=== PATIENT | male | born 1955 | race Caucasian/White ===

== ENCOUNTER → 2019-12-22 09:05 | Outpatient (CLI) | payer MEDICARE, OTHER, SELFPAY | PROVIDERS: PCP Dentist; Referring Provider Registered Nurse; Visit Provider Registered Nurse | DX: Z20.828 Contact with and (suspected) exposure to other viral communicable diseases (principal) | CPT/HCPCS: 87635; C9803; U0003 ==

== ENCOUNTER 2021-11-09 19:28 | Emergency (ER) | payer MEDICARE, OTHER, SELFPAY ==
[2021-11-09 19:29] VITALS: BP 152/94; PULSE 61; RESP 15; TEMP 36.2; O2SAT 98; BMI 29.5
--- NOTE | 2021-11-09 19:42 | EKG12_ITS ---
Test Reason : CP Blood Pressure : / mmHG Vent. Rate : 064 BPM Atrial Rate : 064 BPM P-R Int : 186 ms QRS Dur : 082 ms QT Int : 400 ms P-R-T Axes : 038 -18 055 degrees QTc Int : 412 ms Sinus rhythm with marked sinus arrhythmia Otherwise normal ECG Confirmed by LEIDY ALFARO, TRACIE ([id number]), proposal editor BHUPENDRA ARIZMENDI ([id number]) on 11/11/2021 11:30:36 AM Referred By: TAMIKO Confirmed By:TRACIE FORBES MD
--- NOTE | 2021-11-09 19:56 | EDS_ITS ---
HPI History of Present Illness Chief Complaint: Chest Pain Informant: patient and spouse/S.O. Narrative Narrative: Postop day [address] three-v[address] CAB[address] Dr[address] rEic Del Rosario after talking with cardiology office today with worsening pain across his mid sternum. He states he had chest pains that led to PT visit with a abnormal EKG. He was referred to workers compensation claims specialist Dr. Mark at [facility]. Abnormal nuclear stress leading to heart cath on December 22. They found multivessel disease , had three-vessel CABG. He has been having persistent pain since his surgery. He started on gabapentin he was on oxycodone's which takes his pain down to a 5. Since being discharged approximately 8 days ago gabapentin increased to 3 times a day and told to use Tylenol. Today pain is worsening. States sharp pains today left lateral with dyspnea. He did follow-up 2 days ago was being referred to pain management for his pain. He denies cough. He denies any leg swelling or cramping. History of hypertension hyperlipidemia and family history in his father side with coronary disease and ID. No tobacco history. He is currently on baby aspirin daily. No other anticoagulants. Prior Similar Symptoms: Yes CVD Risk Factors: Positive for Hypertension, Hypercholesterolemia and Family History 1' </=55 PE Risk Factors: Positive for Recent Travel/Surgery [facility] Medical History (Updated 11/09/21 @ 23:[address] Silas Mcpherson DO) Hernia Hypertension Vertigo Home Medications clopidogrel 75 mg tablet 75 mg PO DAILY 11/09/21 [History Last Taken Unknown] gabapentin 100 mg capsule 200 mg PO BID 11/09/21 [History Last Taken Unknown] magnesium oxide 400 mg (241.3 mg magnesium) tablet 400 mg PO DAILY 11/09/21 [History Last Taken Unknown] metoprolol tartrate 50 mg tablet 50 mg PO BID 11/09/21 [History Last Taken Unknown] oxycodone-acetaminophen 5 mg-325 mg tablet (Percocet) 1 tab PO Q6H PRN pain 3 days #12 tabs 11/09/21 [Rx Last Taken Unknown] rosuvastatin 20 mg tablet 20 mg PO QHS 11/09/21 [History Last Taken Unknown] sertraline 100 mg tablet 150 mg PO DAILY 11/09/21 [History Last Taken Unknown] Allergy/AdvReac Type Severity Reaction Status Date / Time paroxetine [From Paxil] AdvReac PT UNSURE Verified 11/09/21 19:32 OF REACTION Surgical History (Updated 11/09/21 @ 23:[address] iSlas Mcpherson DO) History of cholecystectomy Hx of CABG Social History Smoking Status: Never smoker ROS ROS ED Constitutional Constitutional ED: Denies chills, fever(s) or sweats Eyes Eyes: Denies change in vision ENT ENT ED: Denies dysphagia or sore throat Cardiovascular Cardiovascular: Reports chest pain; Denies leg edema, palpitations or racing heartbeat Respiratory/Chest Respiratory/Chest: Reports dyspnea; Denies cough or dyspnea on exertion Gastrointestinal Gastrointestinal: Denies abdominal pain, diarrhea, nausea or vomiting Genitourinary Genitourinary ED: Denies dysuria, hematuria or urinary frequency Musculoskeletal Musculoskeletal: Denies back pain, extremity pain or neck pain Integumentary Denies rash or wounds Neurologic Neurologic: Denies headache(s), paresthesias or weakness EXAM Physical Exam Const Vital Signs: 11/09/21 19:29 11/09/21 20:00 11/09/21 20:01 Temperature 97.2 F L Temperature Source Temporal Pulse Rate 61 66 Respiratory Rate 15 19 H Respiratory Effort Normal Non-Labored Blood Pressure 152/94 H 154/82 H Blood Pressure Mean 113 106 Pulse Ox 98 99 Oxygen Delivery Method Room Air Room Air 11/09/21 21:00 11/09/21 22:00 11/09/21 22:11 Temperature Temperature Source Pulse Rate 64 55 L Respiratory Rate 13 16 Respiratory Effort Blood Pressure 154/82 H 130/88 H Blood Pressure Mean 106 102 Pulse Ox 96 96 Oxygen Delivery Method Room Air Room Air Room Air 11/09/21 23:25 Temperature 98 F Temperature Source Pulse Rate 69 Respiratory Rate 17 Respiratory Effort Blood Pressure 143/94 H Blood Pressure Mean Pulse Ox Oxygen Delivery Method Positive well nourished and well developed General Appearance ED: well developed and NAD HEENT Reports moist mucous membranes normocephalic and atraumatic Eyes PERRL, EOMs intact bilaterally and conjunctivae normal General Eye ED: Yes normal appearance of both eyes Neck no lymphadenopathy and supple General: Negative for tenderness Chest Wall Chest Narrative: Midline chest incision scar with scabbing. There is no erythema or drainage. Chest: Negative for tenderness Resp normal respiratory effort and normal air movement Resp Narrative: Symmetric breath sounds bilaterally. Effort and Inspection: symmetric chest movement; Negative for respiratory distress Cardio regular rate, regular rhythm and no murmurs Peripheral Pulses: pulses 2+ throughout GI normal to inspection, nondistended, normoactive bowel sounds and non-tender Palpation: Negative for guarding or rebound tenderness present Back/Spine no CVA tenderness and no thoracic nor lumbar tenderness Extremity normal to inspection General Extremety ED: Negative for edema or tenderness General Extremity: Negative for edema Neuro oriented x3 and no sensory deficits noted Sensorium / Orientation: awake and alert Skin no rashes or lesions noted and no wounds Heart Score History: Slightly/Non-Suspicious ECG: Normal Age: >/= 65 years Risk Factors: >/= 3 Risk Factors or History of CAD Troponin: </= Normal Limit Score: 4 MDM MDM MDM Narrative Medical decision making narrative: Patient with chest pains postop day 16. Reports dyspnea today. EKG with no acute findings cardiac work-up high since troponin negative x2. With his new symptoms being. Discussed obtaining CTA to rule out PE. This was obtained and negative. Noted small amount of pericardial effusion along with tiny left pleural effusion. This consistent with his recent surgery. There is no findings of pericarditis on his EKG as this is still part of the differential. He saw his cardiothoracic surgeon 2 days ago is being referred to pain management he has a follow-up with his workers compensation claims specialist Dr. Mark this coming Thursday. Symptoms were improving with morphine he states it stabilized with o xycodone's. Oral dose was given in the ED. Short prescription also written for pain control to help with his symptoms he will keep his follow-up on Thursday. Return precaution discussed. All questions were answered. Lab Data Attestation: I reviewed the patient's lab results. Labs: Laboratory Results - last 24 hr 11/09/21 11/09/21 11/09/21 19:53 19:53 22:22 WBC 9.2 RBC 3.69 L Hgb 12.2 L Hct 35.3 L MCV 95.7 H MCH 33.1 H MCHC 34.6 RDW Std Deviation 44.2 H RDW Coeff of Saskia 12.8 Plt Count 656 H MPV 8.4 Immature Gran % (Auto) 0.200 Neut % (Auto) 64.1 Lymph % (Auto) 15.1 L Sutter % (Auto) 8.8 Eos % (Auto) 10.5 H Baso % (Auto) 1.3 H Absolute Neuts (auto) 5.9 Absolute Lymphs (auto) 1.39 Nucleated RBC % 0 Sodium 140 Potassium 4.5 Chloride 104 Carbon Dioxide 30.0 Anion Gap 6 BUN 29 H Creatinine 1.21 Estim Creat Clear Calc 63.10 Est GFR (MDRD) Af Amer 77 Est GFR (MDRD) Non-Af 63 BUN/Creatinine Ratio 24.0 H Glucose 118 H Calcium 9.3 Troponin I High Sens 35 36 Radiography Diagnostic Testing: Clinical Impression(s) from Imaging Studies Chest CTA 11/09/21 19:56 IMPRESSION: 1. Small amount of pericardial fluid. 2. No hematoma or significant hemorrhage. 3. No no PE, aortic dissection or pneumonia. Tiny left pleural effusion. Electronically Signed: Eliseo Johnson MD at 21:54 EDT Reading [facility] ID and [facility] [place] Tel , Service support , EKG Initial EKG: Attestation: I personally reviewed and interpreted this EKG as follows: Comments: Sinus rate of 64, no ST changes T wave inversion V1 V2. Discharge Plan Triage Chief Complaint: Chest Pain ED Provider: Silas Mcpherson Dx/Rx/DC Orders Clinical Impression: Chest pain, S/P CABG x 3, Pericardial effusion without cardiac tamponade Instructions: ED Chest Pain, Uncertain Cause Prescriptions: New oxycodone-acetaminophen [Percocet] 5-325 mg tablet 1 tab PO Q6H PRN (Reason: pain) 3 Days Qty: 12 0RF No Action sertraline 100 mg tablet 150 mg PO DAILY Label Comments: take 1 and 1/2 tablets by mouth once daily clopidogrel 75 mg tablet 75 mg PO DAILY magnesium oxide 400 mg (241.3 mg magnesium) tablet 400 mg PO DAILY Label Comments: take 1 tablet by mouth once daily until finished metoprolol tartrate 50 mg tablet 50 mg PO BID Label Comments: take 1 tablet by mouth twice a day gabapentin 100 mg capsule 200 mg PO BID Label Comments: take 2 capsules by mouth twice a day for 14 days rosuvastatin 20 mg tablet 20 mg PO QHS Primary Care Provider: Madhu Salgado Referrals: Rafi Jacobo MD [STAFF PHYSICIAN] - Activity Restrictions/Additional Instructions: Cardiac work-up negative. CT of the chest negative for PE. There is mild pericardial effusion, mild left pleural effusion. There are no signs of pericarditis on EKG. Her troponins were negative. Keep your follow-up on Thursday with Dr. Mark for evaluation. Disposition Disposition: Home, Self Care Discharge Date/Time: 11/09/21 23:45
--- NOTE | 2021-11-09 19:56 | CT_ITS ---
EXAM: CT ANGIOGRAPHY CHEST WITHOUT AND WITH INTRAVENOUS CONTRAST CLINICAL INDICATION: chest pain -- postop 3vessel CABG day 16 TECHNIQUE: Helically acquired angiography images were obtained of the chest without and with intravenous contrast. CTDIvol = ( 14.83 ) mGy, DLP = ( 496.30 ) mGycm This CT exam was performed using one or more of the following dose reduction techniques: automated exposure control, adjustment of the mA and/or kV according to patient size, and/or use of iterative reconstruction technique. This report was created using En[employer] report generation technology. MIP reconstructed images were created and reviewed. CONTRAST: IV 100mL Isovue-370 COMPARISON: None. FINDINGS: PULMONARY ARTERIES: No PE. Normal in caliber. No evidence of pulmonary embolism. AORTA: No aortic aneurysm or dissection. GREAT VESSELS OF AORTIC ARCH: Unremarkable. Normal in caliber. No evidence of dissection. LUNGS AND PLEURAL SPACES: Scarring involving the right middle follicular middle lobe and inferior lingula. No consolidation. Pneumothorax. Small left pleural effusion. No mass. HEART: Small pericardial fluid anteriorly. No cardiomegaly. CABG postsurgical changes. No signs of right heart strain, ratio of right ventricle to left ventricle measures less than 1. MEDIASTINUM: Unremarkable. No mediastinal or hilar adenopathy. Esophagus is unremarkable. No hiatal hernia. THYROID: Unremarkable. No thyroid lesions. BONES/JOINTS: No suspicious lytic or sclerotic lesions of bone. GALLBLADDER AND BILE DUCTS: Prior cholecystectomy. CT/CTA Chest W/WO Contrast IMPRESSION: 1. Small amount of pericardial fluid. 2. No hematoma or significant hemorrhage. 3. No no PE, aortic dissection or pneumonia. Tiny left pleural effusion. Electronically Signed: Eliseo Johnson MD at 21:54 EDT ,
[2021-11-09 20:00] VITALS: BP 154/82; PULSE 66; RESP 19; O2SAT 99
[2021-11-09] MEDS: Morphine 4 MG/ML Syringe IV (20:05)
[2021-11-09] MEDS: Ondansetron 4 MG/2 ML Vial IV (20:05)
[2021-11-09 20:32] LABS: Absolute Lymphocyte Count 1.39 X10^3/uL (0.83-4.51); Absolute Neutrophil Count 5.9 X10^3/uL (2.0-7.7); Basophil# 0.12 X10^3/uL; Basophil% 1.3 % (0-1); Eosinophil# 0.97 X10^3/uL; Eosinophils% 10.5 % (0-5); Hematocrit 35.3 % (40-54); Hemoglobin 12.2 g/dL (13.0-16.5); Lymphocyte # 1.39 X10^3/ul (0.83-4.51); Lymphocyte % 15.1 % (19-41); Mean Corp Hgb Conc 34.6 g/dL (32-36); Mean Corpuscular Hgb 33.1 pg (27.0-32.0); Mean Corpuscular Volume 95.7 fL (80-94); Mean Platelet Vol. 8.4 fl (6.2-12.0); Monocyte# 0.81 X10^3/uL; Monocyte% 8.8 % (0-10); NRBC Flagged by Analyzer 0 % (0-5); Neutrophil # 5.89 X10^3/uL (2.7-7.7); Neutrophil % 64.1 % (47-70); Platelet Count 656 K/mm3 (150-450); RBC Distribution Width CV 12.8 % (11.6-14.6); RBC Distribution Width SD 44.2 fl (35.1-43.9); Red Blood Count 3.69 M/mm3 (4.6-6.2); White Blood Count 9.2 K/mm3 (4.4-11.0)
[2021-11-09 20:43] LABS: Anion Gap 6 (5-15); BUN 29 mg/dL (7-18); Calcium,Total 9.3 mg/dL (8.5-10.1); Chloride 104 mmol/L (98-107); Creatinine, Serum 1.21 mg/dL (0.70-1.30); EST Glomerular Filtration Rate 63 mL/min (>60); Est Glom Filt Rate - Afr Amer 77 mL/min (>60); Glucose 118 mg/dL (74-106); Potassium 4.5 mmol/L (3.5-5.1); Sodium Level 140 mmol/L (136-145); Troponin-I HS (w/2H Reflex) 35 pg/mL (3.0-78.0)
[2021-11-09 21:00] VITALS: BP 154/82; PULSE 64; RESP 13; O2SAT 96
[2021-11-09 22:00] VITALS: BP 130/88; PULSE 55; RESP 16; O2SAT 96
[2021-11-09 22:15] LABS: Reflex Troponin-HS? (from REC) Y
[2021-11-09] MEDS: oxyCODONE 5 MG Tablet PO (22:54)
[2021-11-09 22:55] LABS: Troponin-I HS 36 pg/mL (3.0-78.0)
[2021-11-09 23:25] VITALS: BP 143/94; PULSE 69; RESP 17; TEMP 36.6
== END 2021-11-09 23:45 | disposition home or self-care (01) ==
PROVIDERS: Emergency Provider Emergency Medicine; PCP Family Medicine; Visit Provider Emergency Medicine
DX: R07.9 Chest pain, unspecified (principal); I31.3 Pericardial effusion (noninflammatory); I10 Essential (primary) hypertension; F17.200 Nicotine dependence, unspecified, uncomplicated; Z79.899 Other long term (current) drug therapy; Z95.1 Presence of aortocoronary bypass graft
CPT/HCPCS: 71275; 80048; 84484; 85025; 93005; 96374; 96375; 99285; Q9967; A4216; J2405

== ENCOUNTER → 2021-12-26 | Outpatient (CLI) | payer MEDICARE, OTHER, SELFPAY ==
--- NOTE | 2021-12-26 07:57 | CR.HP_ITS ---
CR - History & Physical - General Arrival date:: 12/26/21 Arrival time:: 08:02 Date of Referral:: 12/12/21 Date of CR Evaluation:: 12/26/21 Referring Physician: DR. CHRISTOPHER ARREDONDO ([facility]) / DR. SEVERINO MEDEROS ([place]) Primary Diagnosis: HTN, HLD. - History of Present Cardiac Event Onset Date: Enter Onset Date of cardiac illnesses in Comment field below Acute Myocardial Infarction within 12 months:: No Coronary Artery Bypass Graft:: Yes - 10/24/2021 Vessel: LOW-LAD, SVG-OM, SVG-DIAGONAL Type of Symptoms:: CHEST PAIN, UNSTABLE ANGINA, LACK OF ENERGY, TIREDNESS, FATIGUE. WOULD GO TO BED EARLY (7PM) BE UP EARLY (4AM) Interventions with present event:: STRESS TEST, HEART CATH, SURGERY Were there any complications?: HIGHER PAIN LEVEL - Sleep Disorder Evaluation Hx of Sleep Apnea: No Do you snore loudly (louder than talking or can be heard through closed doors)?: No Do you often feel tired/ fatigued/ sleepy during daytime?: No Has anyone observed you stop breathing during sleep?: No History of Hypertension (for STOP score): Yes STOP Results: Negative - Medications Home Medications: Ambulatory Orders Medication Instructions Recorded clopidogrel 75 mg tablet 75 mg PO DAILY 11/09/21 gabapentin 100 mg capsule 200 mg PO BID 11/09/21 magnesium oxide 400 mg (241.3 mg 400 mg PO DAILY 11/09/21 magnesium) tablet metoprolol tartrate 50 mg tablet 50 mg PO BID 11/09/21 oxycodone-acetaminophen 5 mg-325 1 tab PO Q6H PRN pain 3 days #12 11/09/21 mg tablet (Percocet) tabs rosuvastatin 20 mg tablet 20 mg PO QHS 11/09/21 sertraline 100 mg tablet 150 mg PO DAILY 11/09/21 - Allergies Allergies/Adverse Reactions: Allergies paroxetine [From Paxil] Adverse Reaction (Verified 11/09/21 19:32) PT UNSURE OF REACTION Advanced Directives - Advanced Directives Power of Metal Slitter: No Living Will: No Advance Directives Information Provided: Yes Advance Directives on File: No DNR Order?:: No - MOLST See MOLST form: No Past Medical History - Covid-19 Screening Fever: No Unexplained muscle aches: No Current respiratory symptoms: No Upper respiratory infections symptoms: No Gastro-intestinal symptoms: No Als-Anpw-Nmbfrx symptoms: No Has tested positive for COVID-19 in last 30 days: No Date of testin12/26/21 - FULLY VACCINATED Had contact w/person w/symptoms or Covid-19 (+) last 14 days: No Has High Risk Exposures ID'd by Health dept/Inf Control team: No 65 years or older:: No Lives in Assisted Living facility:: No Has a chronic lung disease or moderate to severe asthma:: No Has a serious heart condition:: Yes Immunocompromised:: No Severely obese (Body Mass Index of 40 or higher):: No Diabetic:: No Has chronic kidney disease undergoing dialysis:: No Has liver disease:: No - Past Medical Illness Medical History: Past Medical History (Last Updated 12/26/21 @ 08:06 by Amarjit Carolina, LARA, [employer], BS) Anxiety F41.9 Coronary artery disease I25.10 Diverticulitis K57.92 CHRISTIANSON (dyspnea on exertion) R06.09 Hernia K46.9 Hypertension I10 Vertigo R42 - Past Surgical History Surgical History: Past Surgical History (Last Updated 12/26/21 @ 08:07 by Amarjit Carolina, LARA, [employer], BS) History of cholecystectomy Z90.49 Hx of CABG Onset Date: ~10/24/21 Z95.1 LOW-LAD, SVG-OM, SVG-DIAGONAL Social History - Smoking History Smoking Status: Never smoker Hx Tobacco Use: No Hx Smoking Exposure: No - Alcohol Use Alcohol Usage: Yes - RED WINE, BEER NOT MUCH OF A DRINKER ONLY ON OCCASIONS - Substance Abuse Hx Substance Use: No - Occupation Occupation (List type of work in comments):: 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 - Hobbies, Recreation, Social Activities Hobbies: Sports - GOLF, Reading - BIBLE STUDY, Exercise - RUNNING, Other - MOTORCYCLES Recreational Activities: I am able to engage in most, but not all activities Social Environment - Status Marital Status: - Current Living Arrangements Living Environment:: Spouse - Children How many children do you have?: 2 Do any of your children live nearby?: Yes - [place] [facility] [facility] , [place] - Safety Do you feel safe in your surroundings?: Yes - Assistance Do you need any assistance at home?: NO Review of Systems - Review of Systems Hints: Right click = Denies (Slash). Left click = Reports ([place]) Review of Present Symptoms: Reports: Shortness of Breath with Exertion - STILL SOMEWHAT WITH AMBULATING 1-2 MILES, Operative Discomfort - A LOT OF INCISIONAL PAIN CHEST PAIN (STERNUM & RIBS), Wound Healing, Fatigue, Appetite - Normal, Sleep - Normal. Denies: Dizziness/Lightheadedness, Heart Arrhythmia/Irregularities, Appetite - Special Diet - TRYING TO ELIMINATE SODA/POP, DRINKING ALOT OF PROPEL WATER, WATER, ELIMINATED PROCESS FOODS. SODIUM LEVEL NORMALL Y BELOW NORMAL. NO ADDED SALTS, Sexual Changes - Pain Is Patient Pain Free?: No Pain Location: chest Pain Level: /10 Risk Factor Assessment - Chief Complaint Chief Complaint: S/P CABG x 3 - Vital Signs Temperature: 97.2 F Respiratory Rate: 18 Pulse Ox: 98 Blood Pressure: 128/66 - Pulse Pulse Rate: 51 Pulse Rhythm: Regular - Hypertension Blood Pressure Sitting - Left Arm: 128/66 - Stress Stress: Recent - Diabetes Nutrition Referral for Diabetes: No - Obesity Height: 5 ft 11 in Weight:: 219 lb Weight in Pounds: 219.0 lbs Weight Source: Estimated by Patient Body Mass Index (BMI): 30.5 Nutritional Referral for Obesity: Yes - Physical Inactivity Physical Inactivity: Reg Exercise 30 min/day, Physically demanding job, Recreational activity - Risk Stratification Risk Guidelines: Lowest Risk: Risk Factor for Smoking, Risk Factor for Diabetes, Risk Factor for Hypertension - 128/66, Risk Factor for Sedentary Lifestyle, Risk Factor for Depression, Moderate Risk: Risk Factor for Dyslipidemia, Risk Factor for Obesity - BMI 30, Highest Risk: Risk Factor for Obesity Motivation - Motivation to Participate On a scale of 1 to 10, how prepared are you to commit to attending program?: 10 What do you see as barriers to successfully being able to complete the program?: LEVEL OF PAIN FROM SURGERY, OTHER THAN THAT NOTHING PHYSICALLY What do you see as the benefits of succesfully completing the program? In other words, what do you hope to get out of participating in the program?: MINIMIZE LEVEL OF PAIN, HEALTHIER, FEELING BETTER, BEING ABLE TO GET BACK Are there issues you are dealing with that will interfere with completing the program?: LEVEL OF PAIN Do you have a spouse or signficant other, family or friends who will help support you to complete the program?: YES
--- NOTE | 2021-12-26 07:58 | PCM.CR.ITP ---
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, OBESE Personal Learning Style:: Audio/Visual, Written Barriers to Learning: No Barriers Stage of change r/t lifestyle modifications:: Action Gave educational material for:: Treating Heart Disease, Emotions & Heart Disease, Stress Management & Relaxation, Sleep Disorders & Heart Disease, How The Heart Works, What it means to have Heart Disease, How Coronary Artery Disease is Diagnosed, Heart Procedures, What Heart Medications Do, Risk Factors & Modifications, Living an Active Life, Nutrition - Education/Goals Individual Counseling: Initial Assessment: Abnormal Cholesterol Levels - NO LABS AVAILABLE, High Blood Pressure - 128/66 BP, Overweight/Obesity - BMI> 30 Cardiac Rehabilitation Goals: 1. Maintain the individual as the primary focus of care. 2. To improve the patient's quality of life. 3. Identification of cardiac risk factors and provide cardiac risk factor management. 4. Enhance the psychosocial status of the patient. 5. Reconditioning enough to allow the patient to resume customary activities. 6. Control symptoms of cardiac disease Personal Goals: Initial Assessment: Improve management of stress and emotions, Improve energy level, Participate in home exercise program, Get back to work, or to resume activities faster, Improve muscle strength and endurance, Improve diet and eating habits (eat healthier), Control risk factors (learn risk factor modification), Other goal: - RESUME RUNNING Scale for measuring improvement of personal goals: Enter appropriate number in Comments. 2 = Unchanged. 3 = Slightly Better. 4 = Moderate Improvement. 5 = Met my Goal - Diagnosis & Disease Process Outcomes/Goals: Pt IDs own risk factors & lifestyle modifications by Session 10, Verbalizes symptoms of angina & response by session 3., Pt independently manages Plan/Interventions: Assist Pt to ID & engage in lifestyle modification to reduce CVD risk, Instruct on individual risk factors, Review symptoms of angina & emergency actions, Review secondary diagnosis & identify educational needs. - Safety Referral to Physical Therapy: No Referral to [facility] Case Management: No Fall Risk Assessed:: Yes Assistive Devices:: None Exercise - Initial Assessment - Physician Prescribed Exercise Modalities: Treadmill, Airdyne, NuStep Frequency: 3x/week for 12 weeks [36 sessions] Intensity: 60-80% of age predicted maximum heart rate reserve Duration: 30 - 45 minutes Current METSs:: 4.0 Target Heart Rate:: 100-130 Resting Blood Pressure: 128/66 EKG Type: SINUS RHYTHM WITH MARKED SINUS ARRYTHMIA Current Physical Activity or Exercising minutes: PHYSICALLY ACTIVE - FORMER RUNNER - Outcomes & Goals Goals:: Verbalizes understanding of THR, RPE & goal METS by session 6, Documents in home exercise log/reports 30 min aerobic 5 day/wk by DC, Demonstrates accurate pulse taking by DC - Intervention & Plan Exercise Program Goals: Instruct on personal THR & RPE, Instruct on MET level & personal MET goal, Show patient to take own pulse /validate performance until accurate, Instruct on home exercise - Physical Activity Home Exercise Physical Activity - Home Exercise: Safe Exercise, Warm-up, Self-monitoring, Cool-Down, Home Exercise > 30 min Daily, Sitting Time <3 hours/daily - Outcomes & Goals Outcomes/Goals: Demonstrates correct Warm-up/exercise Cool-Down (S3) if = 2.5 METs, Verbalizes symptoms of exercise intolerance by Session 3 (S3), Demonstrate safe equipment use (S3) & follows exercise prescrition (6) - Intervention & Plan Plan/Intervention: Instruct warm-up & cool-down if exercising at > 2 METs, Instruct on symptoms of exercise intolerance & actions to take, Instruct & monitor on saf, Assess intial functional capacity & safety risk Nutrition - Initial Assessment - Program Goals Nutrition Program Goals: LDL <100 optimal. 100 - 129 Near optimal. 130 - 159 Borderline High. 160 - 189 High. Total Cholesterol <200 desirable. 200 - 239 Borderline High. >/= 240 High. HDL < 40 Low >/=60 High. Triglycerides <150 desirable. <199 optimal. VlDL 5 - 40. HgbA1C <7%. BMI <25 Patient has diagnosis of Hyperlipidemia (ICD E78)?: No - Visit Date of Assessment:: 12/26/21 Session #:: 0 - SUSPECTED HYPERLIPIDEMIA; NO LABS AVAILABLE - Cholesterol/Lipids (Other Core Measures) Determine presence & major risk factors that modify LDL goal: Hypertension or hypertensive medication, Age men > 45 years; women >/= 55 years Outcomes/Goals: Pt IDs own risk factors & lifestyle modifications by Session 10, Verbalizes symptoms of angina & response by session 3., Pt independently manages Intervention/Plan: Instruct on personal lipid levels & lipid goals/NCEP guidelines, Instruct on cholesterol Referral to dietitian:: Yes - MEDICAL NUTRITION THERAPY - Diabetes (Other Core Measures) Diabetes Type: Not Applicable - Weight Mgt (Other Care) Not Applicable: Yes Height: 5 ft 11 in Weight:: 219 lb BMI: 30.5 Diagnosis Overweight/Obesity BMI> 30% ICD-10 E66: Yes Diagnosis High BMI/Morbid Obesity BMI> 35% ICD-10 Z68: No Outcomes/Goals: Pt sets, maintains & shows weight loss goal & trend during rehab Intervention/Plan: Instruct on ideal BMI & set weight loss goal w/patient, Assist pt to ID & incorporate diet changes for weight loss by S9, Refer to Structured Weight Loss program as appropriate, Encourage goal of using 250-300dcal per session for weight loss - Healthy Eating Habits Will attend diet classes:: Yes Outcomes/Goals:: Consume diet rich in vegs,fruits,whole grain/high fiber,fish,lean meat, Limit sat/trans fats,cholesterol & added salts & sugars Intervention/Plan:: Assess current eating habits - Education Gave educational materials for:: Healthy eating Nutrition - 30-Day Assessment Nutrition - 60-Day Assessment Nutrition - 90-Day Assessment Nutrition - Final Assessment Core - Initial Assessment - Visit Date of Eval: 12/26/21 Session #:: 0 - PRE-CARDIAC REHAB EVALUATION - Medication Compliance Preventative Medication(s):: Aspirin, Clopidogrel/P2Y12 inhibit, Statin/lipid, Beta trena H/O mental health issues: depression, anxiety, or addiction?: No Doesn?t believe in the benefits of treatment?: No Believes medications are unnecessary or harmful?: No Has a concern about medication side effects?: No Expresses concern over the cost of medications?: No Outcomes/Goals: Verbalizes medications,desired effect & common side effects @ DC, Pt self-reports following medication regimen, Keeps card in wallet w/medications listed by DC Interventions/plans: Instruct on medication effects & side effects, Review medication list w/patient every two weeks, Instruct importance of taking meds as ordered & assist problem solving - Tobacco Use Tobacco Use: Non-smoker - Hypertension Hypertension Diagnosis:: Hypertension ICD-10 I10 Resting Blood Pressure:: 128/66 [place] [employer] Hypertension Guidelines: [place] [employer] Hypertension Guidelines. Normal BP Less than 120/80. Elevated BP 120/80. Hypertension Stage 1: BP 130-139/80-89. Hypertesnion Stage 2: BP 140 or higher/90 or higher. Hypertension Crisis: BP higher than 180/120 Outcomes/Goals: Able to verbalize/achieve optimal blood pressure <130/80, Incorporates diet changes & exercise for blood pressure control by DC Interventions/plan: Instruct on optimal blood pressure, hypertension & medications, Instruct on effects of sodium, alcohol, stress, exercise &hypertension - Tobacco Cessation Referral Smoking Cessation Referral:: No Individual Education/Counseling:: No Education Schedule Given:: Yes Core - 30-Day Assessment Core - 60-Day Assessment Core - 90 Day Assessment Core - Final Assessment Psychosocial - Initial Assess - VIsit Date of Eval: 12/26/21 Session #:: 0 - PRE-CARDIAC REHAB EVALUATION Not Applicable: No History of previous Mental disease:: Yes History of Emotional Disorders: Anxious - Psychosocial Test Tool Used:: Ferrans Onzo QOL Cardiac, PHQ-9 Questionnaire phq-9 Severity: Severity. 1-4 Minimal Depression. 5-9 Mild Depression. 10-14 Moderate Depression. 15-19 Moderately Sever Depression. 20-27 Severe Depression. Rule: - Referral to Behavioral Health PS - Interventions: Yes Attend Stress Management Classes, No Referral to Behavioral Health if PHQ-9 score >9:, No Referral to [facility], No Referral to Physician if PHQ-9 if score is 5-9: - Outcomes/Goals: See list Psychosocial Outcomes/Goals:: ID's personal stressors & 2 strategies to manage stress by discharge - Intervention/Plan: See List Interventions/Plan:: Assess stressors,coping strategies & signs of derpression on admission, Instruct/assist pt to develop coping & personal stress Mgt strategies, Instruct patient to recognize signs & symptoms of depression, Instruct patient to recog Psychosocial - 30-Day Assess Psychosocial - 60-Day Assess Psychosocial - 90-Day Assess Psychosocial - Final Assessmen Patient Health Questionnaire Initial Assessment 1. Little interest or pleasure in doing things: Several days 2. Feeling down, depressed, or hopeless: Several days 3. Trouble falling or staying asleep, or sleeping too much: Not at all 4. Feeling tired or having little energy: Several days 5. Poor appetite or overeating: Not at all 6. Feeling bad about yourself -- or that you are a failure or have let yourself or your family down: Not at all 7. Trouble concentrating on things, such as reading the newspaper or watching television: Several days 8. Moving or speaking so slowly that other people could have noticed. Or the opposite - being so fidgety or restless that you have been moving around a lot more than usual: Not at all 9. Thoughts that you would be better off , or of hurting yourself in some way: Not at all Total Score: 4 DEBORAH-Q SV Test - Statements CAD is a disease of the arteries in the heart: False Examples of risk factors for heart disease: True Angina is chest pain or discomfort: True The benefits of resistance training include: True Eating more meat and dairy products: False Anti-platelet medications such as aspirin are important: True The only effective way to manage stress: False An exercise warm-up slowly increases heart rate: True Prepared, processed foods usually have high sodium: True Depression is common after a heart attack: True The statin medications lower cholesterol: True To control blood pressure, lower the amount of sodium: True If someone gets chest discomfort during walking: False Transfats are partially hydrogenated vegetable oils: True Sleep apnea that is not treated increases the risk: True To control cholesterol, one should become a vegetarian: False Someone knows if he/she is exercising at the right level: False Diabetes cannot be prevented with exercise & health eating: False Stress is a large risk for heart attack: False A diet that can help lower blood pressure is rich in: True - Total Score Total Correct Responses: 17 Self-Efficacy Initial Assessment We would like to know how confident you are in doing certain activities. Please select your confidence level for:: Select your confidence level for the following using the scale 1-10 where 1 is not at all confident and 10 is totally confident. Your score is the average of all 6 responses. Fatigue: How confident are you that you can keep the fatigue caused by your disease from interfering with the things you want to do? Select Number: 9 Physical Discomfort or Pain: How confident are you that you can keep the physical discomfort or pain of your disease from interfering with the things you want to do? Select Number: 9 Emotional Distress: How confident are you that you can keep the emotional distress caused by your disease from interfering with the things you want to do? Select Number: 5 Other Symptoms or Health Problems: How confident are you that you can keep other symptoms or health problems from interfering with the things you want to do? Select Number: 5 Different Tasks and Activities: How confident are you that you can do the different tasks and activities needed to manage your health condition so as to reduce your need to see a doctor? Select Number: 5 Medication: How confident are you that you can do things other than just taking medication to reduce how much your illness affects your everyday life? Select Number: 5 Total Score:: 6 Nutrition Survey - Nutrition Survey Initial Have you lost >10 lbs over the past 2 months without trying?: No Are you following a special diet at home for diabetes, low fat, or low salt?: Yes Are you interested in meeting with a dietitian for help understanding your diet?: No Do you eat less than 3 meals a day?: No Do you eat fatty meats (silva, sausage, ribs, etc), fried foods, desserts, large amounts of salad dressings, margarine, butter, or cheese most days?: No Do you have food allergies? [Enter types in comment field]: No Do you eat in restaurants more than 3 times a week?: No Do you season food with salt, seasoning salt, or garlic salt?: No Do you used canned, boxed, frozen meals, or soups, seasoning packets?: Yes Total Score:: 2
[2021-12-26 08:28] VITALS: BP 128/66; PULSE 51; RESP 18; TEMP 36.2; O2SAT 98; BMI 30.5
[2021-12-26 09:13] VITALS: BP 128/66; BMI 30.5
== END | disposition home or self-care (01) ==
LOC: CR 07:53
PROVIDERS: PCP Family Medicine
DX: Z95.1 Presence of aortocoronary bypass graft (principal); I10 Essential (primary) hypertension

== ENCOUNTER 2021-12-31 12:45 | Emergency (ER) | payer MEDICARE, OTHER, SELFPAY ==
[2021-12-26 09:13] VITALS: BMI 30.5
[2021-12-31 12:46] VITALS: BP 197/115; PULSE 110; RESP 18; TEMP 36.1; O2SAT 98; BMI 29.4
[2021-12-31 13:04] VITALS: BP 163/104; PULSE 94; RESP 16; O2SAT 99
--- NOTE | 2021-12-31 13:34 | EDS_ITS ---
HPI History of Present Illness Chief Complaint: Chest Pain Informant: patient Narrative Narrative: Patient present secondary to chronic chest pain. He had bypass surgery in October and has had chest wall pain since that time. He has been on oxycodone and tramadol. He recently stopped taking gabapentin and Tylenol. Patient states that he was most recently prescribed tramadol 50 mg every 6 hours. This was not controlling his pain so he called and left a message for his pain management team stating that he was going to take 1-1/2 tabs every 6 hours if that was a problem to let him know. He never heard from them. Because of this he ran out of his medication early. He reportedly called his pain management office today but the doctor was not in so the nurses told him to come to the emergency room. They did send a new prescription but it cannot be filled until next week. He also spoke with his fingerprint expert who again told him that the ER should be able to write him a short-term pain medication. [facility] Medical History Anxiety Coronary artery disease Diverticulitis CHRISTIANSON (dyspnea on exertion) Hernia Hypertension Vertigo Home Medications clopidogrel 75 mg tablet 75 mg PO DAILY 11/09/21 [History Last Taken Unknown] gabapentin 100 mg capsule 200 mg PO BID 11/09/21 [History Last Taken Unknown] magnesium oxide 400 mg (241.3 mg magnesium) tablet 400 mg PO DAILY 11/09/21 [History Last Taken Unknown] metoprolol tartrate 50 mg tablet 50 mg PO BID 11/09/21 [History Last Taken Unknown] oxycodone-acetaminophen 5 mg-325 mg tablet (Percocet) 1 tab PO Q6H PRN pain 3 days #12 tabs 11/09/21 [Rx Last Taken Unknown] rosuvastatin 20 mg tablet 20 mg PO QHS 11/09/21 [History Last Taken Unknown] sertraline 100 mg tablet 150 mg PO DAILY 11/09/21 [History Last Taken Unknown] oxycodone-acetaminophen 5 mg-325 mg tablet (Percocet) 1 tab PO Q6H PRN pain 3 days #10 tabs 12/31/21 [Rx Last Taken Unknown] Allergy/AdvReac Type Severity Reaction Status Date / Time paroxetine [From Paxil] AdvReac PT UNSURE Verified 12/31/21 12:49 OF REACTION Surgical History History of cholecystectomy History of hernia repair Hx of CABG (~10/24/21) Social History Smoking Status: Never smoker ROS ROS ED Constitutional Constitutional ED: Denies chills or fever(s) Eyes Eyes: Denies change in vision or discharge from eye(s) ENT ENT ED: Denies discharge from eye(s), rhinorrhea or sore throat Cardiovascular Cardiovascular: Reports chest pain; Denies palpitations Respiratory/Chest Respiratory/Chest: Denies cough or dyspnea Gastrointestinal Gastrointestinal: Denies abdominal pain, diarrhea, nausea or vomiting Genitourinary Genitourinary ED: Denies difficulty urinating or dysuria Musculoskeletal Musculoskeletal: Denies back pain or extremity pain Integumentary Denies Abrasions or rash Neurologic Neurologic: Denies headache(s) or weakness Allergic/Immunologic Allergic/Immunologic ED: Denies lip swelling or urticaria EXAM Physical Exam Const Vital Signs: 12/31/21 12:46 12/31/21 13:04 12/31/21 13:04 Temperature 97 F L Temperature Source Temporal Pulse Rate 110 H 94 Respiratory Rate 18 16 Respiratory Effort Normal Blood Pressure 197/115 H 163/104 H Blood Pressure Mean 142 123 Pulse Ox 98 99 Oxygen Delivery Method Room Air Room Air Positive well nourished and well developed General Appearance ED: well developed HEENT Reports normocephalic and head/scalp atraumatic Eyes PERRL and EOMs intact bilaterally Neck supple Chest Wall inspection of chest normal and palpation of chest normal Chest Narrative: Well-healed midline surgical scar. Resp normal respiratory effort and clear to auscultation bilaterally Cardio regular rate and regular rhythm GI normal to inspection, nondistended, normoactive bowel sounds Palpation: soft Extremity normal to inspection Neuro oriented x3 and no sensory deficits noted Sensorium / Orientation: alert Motor Exam: strength 5/5 throughout Psych mental status grossly normal Skin no rashes or lesions noted MDM MDM MDM Narrative Medical decision making narrative: Patient has chronic chest wall pain after his prior CABG. He is currently being seen by pain management. He was told that both his pain management office as well as his fingerprint expert to come to the emergency room for pain medication as he ran out early. The pain management doctor apparently is not available today to send a different prescription. I did check the patient OARRS report. This appears consistent with what he has told me. I will write him 10 tabs of Percocet. I advised him I would only write him for 3 days of medication. I told him this was a one-time option for him and any further prescriptions need to come through his pain management provider. EKG was obtained per nursing protocol and unremarkable. EKG Initial EKG: Attestation: I personally reviewed and interpreted this EKG as follows: Interpretation: Sinus Rhythm (Sinus at 90 with no acute ischemia.) Discharge Plan Triage Chief Complaint: Chest Pain ED Provider: Janet Aguilar Dx/Rx/DC Orders Clinical Impression: Chest wall pain Instructions: ED Chest Pain, Noncardiac Prescriptions: New oxycodone-acetaminophen [Percocet] 5-325 mg tablet 1 tab PO Q6H PRN (Reason: pain) 3 Days Qty: 10 0RF No Action sertraline 100 mg tablet 150 mg PO DAILY Label Comments: take 1 and 1/2 tablets by mouth once daily clopidogrel 75 mg tablet 75 mg PO DAILY magnesium oxide 400 mg (241.3 mg magnesium) tablet 400 mg PO DAILY Label Comments: take 1 tablet by mouth once daily until finished metoprolol tartrate 50 mg tablet 50 mg PO BID Label Comments: take 1 tablet by mouth twice a day gabapentin 100 mg capsule 200 mg PO BID Label Comments: take 2 capsules by mouth twice a day for 14 days rosuvastatin 20 mg tablet 20 mg PO QHS oxycodone-acetaminophen [Percocet] 5-325 mg tablet 1 tab PO Q6H PRN (Reason: pain) 3 Days Qty: 12 0RF Primary Care Provider: Madhu Salgado Referrals: Madhu Salgado MD [Primary Care Provider] - Activity Restrictions/Additional Instructions: Follow-up with your pain management as scheduled. Disposition Disposition: Home, Self Care
[2021-12-31] MEDS: oxyCODONE 5 MG Tablet PO (13:51)
[2021-12-31 13:54] VITALS: BP 141/85; PULSE 89; RESP 15; O2SAT 98
== END 2021-12-31 13:55 | disposition home or self-care (01) ==
PROVIDERS: Emergency Provider Emergency Medicine; PCP Family Medicine; Visit Provider Emergency Medicine
DX: R07.89 Other chest pain (principal); I25.10 Atherosclerotic heart disease of native coronary artery without angina pectoris; Z95.1 Presence of aortocoronary bypass graft
CPT/HCPCS: 93005; 99283

== ENCOUNTER 2022-01-29 09:30 | Outpatient (RCR) | payer MEDICARE, OTHER, SELFPAY ==
[2021-12-26 09:13] VITALS: BMI 30.5
--- NOTE | 2022-01-22 13:59 | PCM.CR.ITP ---
Diagnosis Exercise - 90-day Assessment - Visit Date of Eval: 01/22/22 Session #:: 30 - Physician Prescribed Exercise Modalities: Treadmill, Airdyne, NuStep Frequency: 3x/week for 12 weeks [36 sessions] Intensity: 60-80% of age predicted maximum heart rate reserve Duration: 30 - 45 minutes Current METSs:: 5.1 Target Heart Rate:: 90-118 Current RPE:: 12-13 Maximum Excercise HR:: 109 Resting Blood Pressure: 94/46 Maximum Exercise Blood Pressure: 140/60 EKG Type: NSR to ST BBB w/ T wave inversion - Outcomes & Goals Goals:: Verbalizes understanding of THR, RPE & goal METS by session 6, Documents in home exercise log/reports 30 min aerobic 5 day/wk by DC, Demonstrates accurate pulse taking by DC - Intervention & Plan Exercise Program Goals: Instruct on personal THR & RPE, Instruct on MET level & personal MET goal, Show patient to take own pulse /validate performance until accurate, Instruct on home exercise - 30-day Reassessments 30 day Reassessments:: Met - Physical Activity Home Exercise Physical Activity - Home Exercise: Safe Exercise, Warm-up, Self-monitoring, Cool-Down, Home Exercise > 30 min Daily, Sitting Time <3 hours/daily - Outcomes & Goals Outcomes/Goals: Demonstrates correct Warm-up/exercise Cool-Down (S3) if = 2.5 METs, Verbalizes symptoms of exercise intolerance by Session 3 (S3), Demonstrate safe equipment use (S3) & follows exercise prescrition (6) - Intervention & Plan Plan/Intervention: Instruct warm-up & cool-down if exercising at > 2 METs, Instruct on symptoms of exercise intolerance & actions to take, Instruct & monitor on saf, Assess intial functional capacity & safety risk - 30-day Reassessments 30 day Reassessments:: Met Nutrition - Initial Assessment Nutrition - 30-Day Assessment Nutrition - 60-Day Assessment Nutrition - 90-Day Assessment - Program Goals Nutrition Program Goals: LDL <100 optimal. 100 - 129 Near optimal. 130 - 159 Borderline High. 160 - 189 High. Total Cholesterol <200 desirable. 200 - 239 Borderline High. >/= 240 High. HDL < 40 Low >/=60 High. Triglycerides <150 desirable. <199 optimal. VlDL 5 - 40. HgbA1C <7%. BMI <25 Patient has diagnosis of Hyperlipidemia (ICD E78)?: Yes - Visit Date of Assessment:: 01/22/22 Session #:: 30 - No Cholesterol available - Cholesterol/Lipids (Other Core Measures) Determine presence & major risk factors that modify LDL goal: Hypertension or hypertensive medication, Family history of premature CHD in Male < 55 years: female <65 yearsFa, Age men > 45 years; women >/= 55 years Outcomes/Goals: Pt IDs own risk factors & lifestyle modifications by Session 10, Verbalizes symptoms of angina & response by session 3., Pt independently manages Intervention/Plan: Instruct on personal lipid levels & lipid goals/NCEP guidelines, Instruct on cholesterol Referral to dietitian:: Yes - Medical Nutrition Therapy 30-day Reassessments:: Progressing - Diabetes (Other Core Measures) Diabetes Type: Not Applicable - Weight Mgt (Other Care) Not Applicable: Yes Height: 5 ft 6 in Weight:: 116 lb BMI: 18.7 Diagnosis Overweight/Obesity BMI> 30% ICD-10 E66: No Diagnosis High BMI/Morbid Obesity BMI> 35% ICD-10 Z68: No Outcomes/Goals: Pt sets, maintains & shows weight loss goal & trend during rehab Intervention/Plan: Instruct on ideal BMI & set weight loss goal w/patient 30 day Reassessments:: Progressing - Healthy Eating Habits Will attend diet classes:: Yes Outcomes/Goals:: Consume diet rich in vegs,fruits,whole grain/high fiber,fish,lean meat, Limit sat/trans fats,cholesterol & added salts & sugars Intervention/Plan:: Assess current eating habits 30-day Reassessments:: Progressing - Education Gave educational materials for:: Healthy eating - use of supplement high protein shakes incorporated into her diet. Nutrition - Final Assessment Core - Initial Assessment Core - 30-Day Assessment Core - 60-Day Assessment Core - 90 Day Assessment - Visit Date of Eval: 01/22/22 Session #:: 30 - Medication Compliance Preventative Medication(s):: Aspirin, Ticagrelor/P2Y12 inhibitor, Statin/lipid, Beta trena H/O mental health issues: depression, anxiety, or addiction?: No Doesn?t believe in the benefits of treatment?: No Believes medications are unnecessary or harmful?: No Has a concern about medication side effects?: No Expresses concern over the cost of medications?: No Outcomes/Goals: Verbalizes medications,desired effect & common side effects @ DC, Pt self-reports following medication regimen, Keeps card in wallet w/medications listed by DC Interventions/plans: Instruct on medication effects & side effects, Review medication list w/patient every two weeks, Instruct importance of taking meds as ordered & assist problem solving 30-day Reassessments:: Met - Tobacco Use Tobacco Use: Non-smoker - Hypertension Hypertension Diagnosis:: Hypertension ICD-10 I10 Resting Blood Pressure:: 94/46 - asymptomatic [place] [employer] Hypertension Guidelines: [place] [employer] Hypertension Guidelines. Normal BP Less than 120/80. Elevated BP 120/80. Hypertension Stage 1: BP 130-139/80-89. Hypertesnion Stage 2: BP 140 or higher/90 or higher. Hypertension Crisis: BP higher than 180/120 Peak Exercise Blood Pressure:: 140/60 Outcomes/Goals: Able to verbalize/achieve optimal blood pressure <130/80, Incorporates diet changes & exercise for blood pressure control by DC Interventions/plan: Instruct on optimal blood pressure, hypertension & medications, Instruct on effects of sodium, alcohol, stress, exercise &hypertension 30 day Reassessments:: Met - Tobacco Cessation Referral Smoking Cessation Referral:: No Individual Education/Counseling:: No Education Schedule Given:: Yes Core - Final Assessment Psychosocial - Initial Assess Psychosocial - 30-Day Assess Psychosocial - 60-Day Assess - VIsit Date of Eval: 01/22/22 Session #:: 30 Not Applicable: Yes History of previous Mental disease:: No - Psychosocial Test Tool Used:: PHQ-9 Questionnaire phq-9 Severity: Severity. 1-4 Minimal Depression. 5-9 Mild Depression. 10-14 Moderate Depression. 15-19 Moderately Sever Depression. 20-27 Severe Depression. Rule: - Referral to Behavioral Health PS - Interventions: Yes Attend Stress Management Classes, No Referral to Behavioral Health if PHQ-9 score >9:, No Referral to [facility], No Referral to Physician if PHQ-9 if score is 5-9: - Outcomes/Goals: See list Psychosocial Outcomes/Goals:: ID's personal stressors & 2 strategies to manage stress by discharge - Intervention/Plan: See List Interventions/Plan:: Assess stressors,coping strategies & signs of derpression on admission - 30-day Reassessments: 30 day Reassessments:: Met Psychosocial - 90-Day Assess Psychosocial - Final Assessmen Patient Health Questionnaire 60-Day Re-eval Assessment 1. Little interest or pleasure in doing things: Not at all 2. Feeling down, depressed, or hopeless: Not at all 3. Trouble falling or staying asleep, or sleeping too much: Not at all 4. Feeling tired or having little energy: Not at all 5. Poor appetite or overeating: Not at all 6. Feeling bad about yourself -- or that you are a failure or have let yourself or your family down: Not at all 7. Trouble concentrating on things, such as reading the newspaper or watching television: Not at all 8. Moving or speaking so slowly that other people could have noticed. Or the opposite - being so fidgety or restless that you have been moving around a lot more than usual: Not at all 9. Thoughts that you would be better off , or of hurting yourself in some way: Not at all How difficult have these problems made it for you to do your work, take care of things at home, or get along with other people?: Not difficult at all Total Score: 0 Self-Efficacy 60-Day Re-eval Assessment We would like to know how confident you are in doing certain activities. Please select your confidence level for:: Select your confidence level for the following using the scale 1-10 where 1 is not at all confident and 10 is totally confident. Your score is the average of all 6 responses. Fatigue: How confident are you that you can keep the fatigue caused by your disease from interfering with the things you want to do? Select Number: 9 Physical Discomfort or Pain: How confident are you that you can keep the physical discomfort or pain of your disease from interfering with the things you want to do? Select Number: 10 Emotional Distress: How confident are you that you can keep the emotional distress caused by your disease from interfering with the things you want to do? Select Number: 10 Other Symptoms or Health Problems: How confident are you that you can keep other symptoms or health problems from interfering with the things you want to do? Select Number: 10 Different Tasks and Activities: How confident are you that you can do the different tasks and activities needed to manage your health condition so as to reduce your need to see a doctor? Select Number: 10 Medication: How confident are you that you can do things other than just taking medication to reduce how much your illness affects your everyday life? Select Number: 10 Total Score:: 9 Nutrition Survey
[2022-01-22 14:08] VITALS: BP 140/60; BP 94/46; BMI 18.7
--- NOTE | 2022-01-22 14:16 | CR.ITP_ITS ---
Diagnosis Exercise - 30-day Assessment - Visit Date of Eval: 01/22/22 Session #:: 6 Comments:: Patient has missed two scheduled appointments due to other conflicts. 01/21/22 Patient went to the emergency room at [facility] to be assessed f or chest pain, noted to be related to his sternum causing a rub healing causing incisional pain. Patient reports he will hold off using upper body movements and may concentrate only on treadmill or Lateral [employer] exercise. He reports he is using Extra Strength Tylenol for the pain. - Physician Prescribed Exercise Modalities: Treadmill, Airdyne Frequency: 3x/week for 12 weeks [36 sessions] Intensity: 60-80% of age predicted maximum heart rate reserve Duration: 30 - 45 minutes Current METSs:: 4.5 Target Heart Rate:: 100-130 Maximum Excercise HR:: 141 Resting Blood Pressure: 156/80 - Blood Pressures remain over 130/80 Maximum Exercise Blood Pressure: 200/98 EKG Type: NSR to NSR to Sinus Tach w/occasional PVCs and PAC noted - Outcomes & Goals Goals:: Verbalizes understanding of THR, RPE & goal METS by session 6, Documents in home exercise log/reports 30 min aerobic 5 day/wk by DC, Demonstrates accurate pulse taking by DC - Intervention & Plan Exercise Program Goals: Instruct on personal THR & RPE, Instruct on MET level & personal MET goal, Show patient to take own pulse /validate performance until accurate, Instruct on home exercise - 30-day Reassessments 30 day Reassessments:: Progressing - Physical Activity Home Exercise Physical Activity - Home Exercise: Safe Exercise, Warm-up, Self-monitoring, Cool-Down, Home Exercise > 30 min Daily, Sitting Time <3 hours/daily - Outcomes & Goals Outcomes/Goals: Demonstrates correct Warm-up/exercise Cool-Down (S3) if = 2.5 METs, Verbalizes symptoms of exercise intolerance by Session 3 (S3), Demonstrate safe equipment use (S3) & follows exercise prescrition (6) - Intervention & Plan Plan/Intervention: Instruct warm-up & cool-down if exercising at > 2 METs, Instruct on symptoms of exercise intolerance & actions to take, Instruct & monitor on saf, Assess intial functional capacity & safety risk - 30-day Reassessments 30 day Reassessments:: Progressing Nutrition - Initial Assessment Nutrition - 30-Day Assessment - Program Goals Nutrition Program Goals: LDL <100 optimal. 100 - 129 Near optimal. 130 - 159 Borderline High. 160 - 189 High. Total Cholesterol <200 desirable. 200 - 239 Borderline High. >/= 240 High. HDL < 40 Low >/=60 High. Triglycerides <150 desirable. <199 optimal. VlDL 5 - 40. HgbA1C <7%. BMI <25 Patient has diagnosis of Hyperlipidemia (ICD E78)?: Yes - Visit Date of Assessment:: 01/22/22 Session #:: 6 - no changes from admission lab work noted. - Cholesterol/Lipids (Other Core Measures) Determine presence & major risk factors that modify LDL goal: Hypertension or hypertensive medication, Family history of premature CHD in Male < 55 years: female <65 yearsFa, Age men > 45 years; women >/= 55 years Outcomes/Goals: Pt IDs own risk factors & lifestyle modifications by Session 10, Verbalizes symptoms of angina & response by session 3., Pt independently manages Intervention/Plan: Instruct on personal lipid levels & lipid goals/NCEP guidelines, Instruct on cholesterol Referral to dietitian:: Yes - Medical Nutrition Therapy 30-day Reassessments:: Progressing - Diabetes (Other Core Measures) Diabetes Type: Not Applicable - Weight Mgt (Other Care) Not Applicable: Yes Height: 5 ft 11 in - Weight:: 220 lb 8 oz - patient has actually gained 2 pounds eating more! BMI: 30.7 Diagnosis Overweight/Obesity BMI> 30% ICD-10 E66: Yes Diagnosis High BMI/Morbid Obesity BMI> 35% ICD-10 Z68: No Outcomes/Goals: Pt sets, maintains & shows weight loss goal & trend during rehab Intervention/Plan: Instruct on ideal BMI & set weight loss goal w/patient, Assist pt to ID & incorporate diet changes for weight loss by S9, Refer to Structured Weight Loss program as appropriate, Encourage goal of using 250- 300dcal per session for weight loss 30 day Reassessments:: Progressing - Healthy Eating Habits Will attend diet classes:: Yes Outcomes/Goals:: Consume diet rich in vegs,fruits,whole grain/high fiber,fish,lean meat, Limit sat/trans fats,cholesterol & added salts & sugars Intervention/Plan:: Assess current eating habits 30-day Reassessments:: Progressing - Education Gave educational materials for:: Healthy eating Nutrition - 60-Day Assessment Nutrition - 90-Day Assessment Nutrition - Final Assessment Core - Initial Assessment Core - 30-Day Assessment - Visit Date of Eval: 01/22/22 Session #:: 6 - Medication Compliance Preventative Medication(s):: Aspirin, Clopidogrel/P2Y12 inhibit, Statin/lipid, Beta trena H/O mental health issues: depression, anxiety, or addiction?: No Doesn?t believe in the benefits of treatment?: No Believes medications are unnecessary or harmful?: No Has a concern about medication side effects?: No Expresses concern over the cost of medications?: No Outcomes/Goals: Verbalizes medications,desired effect & common side effects @ DC, Pt self-reports following medication regimen, Keeps card in wallet w/medications listed by DC Interventions/plans: Instruct on medication effects & side effects, Review medication list w/patient every two weeks, Instruct importance of taking meds as ordered & assist problem solving 30-day Reassessments:: Progressing - Tobacco Use Tobacco Use: Non-smoker - Hypertension Hypertension Diagnosis:: Hypertension ICD-10 I10 Resting Blood Pressure:: 156/80 [place] [employer] Hypertension Guidelines: [place] [employer] Hypertension Guidelines. Normal BP Less than 120/80. Elevated BP 120/80. Hypertension Stage 1: BP 130-139/80-89. Hypertesnion Stage 2: BP 140 or higher/90 or higher. Hypertension Crisis: BP higher than 180/120 Peak Exercise Blood Pressure:: 200/98 Outcomes/Goals: Able to verbalize/achieve optimal blood pressure <130/80, Incorporates diet changes & exercise for blood pressure control by DC Interventions/plan: Instruct on optimal blood pressure, hypertension & medications, Instruct on effects of sodium, alcohol, stress, exercise &hypertension 30 day Reassessments:: Progressing - Tobacco Cessation Referral Smoking Cessation Referral:: No Individual Education/Counseling:: No Education Schedule Given:: Yes - Patient participates in education & training Core - 60-Day Assessment Core - 90 Day Assessment Core - Final Assessment Psychosocial - Initial Assess Psychosocial - 30-Day Assess - VIsit Date of Eval: 01/22/22 Session #:: 6 Not Applicable: Yes History of previous Mental disease:: No History of Emotional Disorders: Anxious, Depression - Patient is on Zoloft and Valium Self-reported stressors: Recent Illness - Psychosocial Test Tool Used:: PHQ-9 Questionnaire phq-9 Severity: Severity. 1-4 Minimal Depression. 5-9 Mild Depression. 10-14 Moderate Depression. 15-19 Moderately Sever Depression. 20-27 Severe Depression. Rule: - Referral to Behavioral Health PS - Interventions: Yes Attend Stress Management Classes, No Referral to [facility] if PHQ-9 score >9:, No Referral to [facility], No Referral to Physician if PHQ-9 if score is 5-9: - Outcomes/Goals: See list Psychosocial Outcomes/Goals:: ID's personal stressors & 2 strategies to manage stress by discharge - Intervention/Plan: See List Interventions/Plan:: Assess stressors,coping strategies & signs of derpression on admission, Instruct/assist pt to develop coping & personal stress Mgt strategies, Instruct patient to recognize signs & symptoms of depression, Instruct patient to recog - 30-day Reassessments: 30 day Reassessments:: Progressing Psychosocial - 60-Day Assess Psychosocial - 90-Day Assess Psychosocial - Final Assessmen Patient Health Questionnaire 30-Day Re-eval Assessment 1. Little interest or pleasure in doing things: Several days 2. Feeling down, depressed, or hopeless: Several days 3. Trouble falling or staying asleep, or sleeping too much: Not at all 4. Feeling tired or having little energy: Several days 5. Poor appetite or overeating: Not at all 6. Feeling bad about yourself -- or that you are a failure or have let yourself or your family down: Not at all 7. Trouble concentrating on things, such as reading the newspaper or watching television: Several days 8. Moving or speaking so slowly that other people could have noticed. Or the opposite - being so fidgety or restless that you have been moving around a lot more than usual: Not at all 9. Thoughts that you would be better off , or of hurting yourself in some way: Not at all How difficult have these problems made it for you to do your work, take care of things at home, or get along with other people?: Very difficult Total Score: 4 Self-Efficacy 30-Day Re-eval Assessment We would like to know how confident you are in doing certain activities. Please select your confidence level for:: Select your confidence level for the following using the scale 1-10 where 1 is not at all confident and 10 is totally confident. Your score is the average of all 6 responses. Fatigue: How confident are you that you can keep the fatigue caused by your disease from interfering with the things you want to do? Select Number: 9 Physical Discomfort or Pain: How confident are you that you can keep the physical discomfort or pain of your disease from interfering with the things you want to do? Select Number: 9 Emotional Distress: How confident are you that you can keep the emotional distress caused by your disease from interfering with the things you want to do? Select Number: 5 Other Symptoms or Health Problems: How confident are you that you can keep other symptoms or health problems from interfering with the things you want to do? Select Number: 5 Different Tasks and Activities: How confident are you that you can do the different tasks and activities needed to manage your health condition so as to reduce your need to see a doctor? Select Number: 5 Medication: How confident are you that you can do things other than just taking medication to reduce how much your illness affects your everyday life? Select Number: 5 Total Score:: 6 Nutrition Survey
[2022-01-22 14:32] VITALS: BP 156/80; BP 200/98; BMI 30.7
== END 2022-01-29 23:59 ==
LOC: CR 09:30
PROVIDERS: PCP Family Medicine
DX: Z95.1 Presence of aortocoronary bypass graft (principal)
CPT/HCPCS: 93798

== ENCOUNTER 2022-02-03 09:30 | Outpatient (RCR) | payer MEDICARE, OTHER, SELFPAY ==
[2022-01-22 14:32] VITALS: BMI 30.7
[2022-01-30 00:09] VITALS: BP 156/80; BP 200/98
== END 2022-03-01 23:59 ==
LOC: CR 09:30
PROVIDERS: PCP Family Medicine
DX: Z95.1 Presence of aortocoronary bypass graft (principal)
CPT/HCPCS: 93798

== ENCOUNTER 2022-03-19 12:34 | Emergency (ER) | payer MEDICARE, OTHER, SELFPAY ==
[2022-01-22 14:32] VITALS: BMI 30.7
[2022-03-19 12:36] VITALS: BP 183/102; PULSE 92; RESP 16; TEMP 36.6; O2SAT 99; BMI 29.5
--- NOTE | 2022-03-19 13:16 | ED.RN ---
PT TEARFUL STATING HE IS DEPRESSED AND HAS NO SUPPORT. RECENT HEART SURGERY AND DIVORCE. MD AND INSULATOR TESTER MADE AWARE.
--- NOTE | 2022-03-19 13:18 | RAD_ITS ---
STUDY: X-RAY CHEST REASON FOR EXAM: Male, 66 years old. Chest pain TECHNIQUE: PA and lateral views of the chest. COMPARISON: None. FINDINGS: EKG electrodes are seen. The lungs are clear and expanded. There is no demonstrated pleural abnormality. Sternal cerclage wires and vascular clips are present from a prior sternotomy and coronary artery bypass graft procedure (CABG). Focal deformity of the left ventricle most likely secondary to a small pericardial defect. Normal mediastinum and vishal. Normal visualized pulmonary arteries. There is atherosclerotic tortuosity of the aortic arch and descending thoracic aorta. There are degenerative changes of the visualized thoracic spine. Normal visualized ribs, clavicles, and shoulders. There is no demonstrated abnormality of the visualized soft tissue structures of the upper abdomen. RAD/Chest PA and Lateral IMPRESSION: Status post CABG. No acute abnormality is seen. Electronically Signed: Brett Oconnor MD at 14:12 EST ,
--- NOTE | 2022-03-19 13:18 | EKG12_ITS ---
Test Reason : CP Blood Pressure : / mmHG Vent. Rate : 083 BPM Atrial Rate : 083 BPM P-R Int : 174 ms QRS Dur : 078 ms QT Int : 358 ms P-R-T Axes : 064 -20 044 degrees QTc Int : 420 ms Normal sinus rhythm Normal ECG When compared with ECG of 31-DEC-2021 13:14, No significant change was found Confirmed by LEIDY ALFARO, TRACIE ([id number]), website/blog editor BHUPENDRA ARIZMENDI ([id number]) on 03/25/2022 11:38:25 AM Referred By: IDNIGO Confirmed By:TRACIE FORBES MD
[2022-03-19] MEDS: Aspirin 81 MG TAB.CHEW 324 MG PO (13:30)
[2022-03-19 13:40] LABS: Absolute Lymphocyte Count 0.83 X10^3/uL (0.83-4.51); Absolute Neutrophil Count 3.5 X10^3/uL (2.0-7.7); Basophil# 0.02 X10^3/uL; Basophil% 0.4 % (0-1); Hematocrit 36.4 % (40-54); Hemoglobin 12.5 g/dL (13.0-16.5); Lymphocyte # 0.83 X10^3/ul (0.83-4.51); Lymphocyte % 16.6 % (19-41); Mean Corp Hgb Conc 34.3 g/dL (32-36); Mean Corpuscular Hgb 30.1 pg (27.0-32.0); Mean Corpuscular Volume 87.7 fL (80-94); Monocyte# 0.49 X10^3/uL; Monocyte% 9.8 % (0-10); NRBC Flagged by Analyzer 0 % (0-5); Neutrophil # 3.52 X10^3/uL (2.7-7.7); Neutrophil % 70.4 % (47-70); Platelet Count 275 K/mm3 (150-450); RBC Distribution Width CV 13.1 % (11.6-14.6); RBC Distribution Width SD 41.8 fl (35.1-43.9); Red Blood Count 4.15 M/mm3 (4.6-6.2)
[2022-03-19 13:48] LABS: Anion Gap 6 (5-15); BUN 17 mg/dL (7-18); BUN/Creat Ratio 15.9 RATIO (10-20); Chloride 110 mmol/L (98-107); Creatinine, Serum 1.07 mg/dL (0.70-1.30); EST Glomerular Filtration Rate 73 mL/min (>60); Est Glom Filt Rate - Afr Amer 88 mL/min (>60); Estimated Creatinine Clearance 70.37 ml/min; Glucose 189 mg/dL (74-106); Potassium 3.3 mmol/L (3.5-5.1); Sodium Level 140 mmol/L (136-145); Troponin-I HS 17 pg/mL (3.0-78.0)
[2022-03-19 14:07] VITALS: PULSE 80; RESP 18; O2SAT 97
--- NOTE | 2022-03-19 14:35 | ED.VIS.CHEST ---
HPI History of Present Illness Chief Complaint: Chest Pain Informant: patient Onset/Context/Timing Onset: Month(s) (1) Activity at onset: gradual Timing: Intermittent and Lasts (Seconds) Quality: Positive for Sharp Location: Left Chest Worsened By: Nothing Relieved By: Nothing Associated Symptoms: Positive for Dyspnea, Cough and Acid Reflux; Negative for Nausea, Vomiting, Diaphoresis, Fever, Lightheadedness or Palpitations Narrative Narrative: Patient presents with chest pain that has been constant for the past month. Patient had recent coronary artery bypass graft and then had a surgery to repair his sternum after that. Patient states his pain comes and goes. Patient describes it as sharp. Patient states it is over the left side of his chest. Patient states nothing makes it better nothing makes it worse. Patient states it only lasts a few seconds when it comes on. Patient admits to some shortness of breath when the pain comes on. Patient admits to a mild cough. Patient admits to occasional reflux symptoms. Patient also states he has been depressed. Patient states that when he came home after his bypass surgery and surgery to repair his sternum, his told him that she was filing for divorce and left him. CVD Risk Factors: Positive for Hypertension and Family History 1' </=55; Negative for Diabetes, Hypercholesterolemia or Smoking PE Risk Factors: Positive for Recent Travel/Surgery; Negative for Recent Immobilization, Prior DVT or PE, Cancer or OCP + Smoking + >/=35 PFSH [facility] Medical History Anxiety Coronary artery disease Diverticulitis CHRISTIANSON (dyspnea on exertion) Hernia Hypertension Vertigo Home Medications clopidogrel 75 mg tablet 75 mg PO DAILY 11/09/21 [History Last Taken Unknown] gabapentin 100 mg capsule 200 mg PO BID 11/09/21 [History Last Taken Unknown] magnesium oxide 400 mg (241.3 mg magnesium) tablet 400 mg PO DAILY 11/09/21 [History Last Taken Unknown] metoprolol tartrate 50 mg tablet 50 mg PO BID 11/09/21 [History Last Taken Unknown] oxycodone-acetaminophen 5 mg-325 mg tablet (Percocet) 1 tab PO Q6H PRN pain 3 days #12 tabs 11/09/21 [Rx Last Taken Unknown] rosuvastatin 20 mg tablet 20 mg PO QHS 11/09/21 [History Last Taken Unknown] sertraline 100 mg tablet 150 mg PO DAILY 11/09/21 [History Last Taken Unknown] oxycodone-acetaminophen 5 mg-325 mg tablet (Percocet) 1 tab PO Q6H PRN pain 3 days #10 tabs 12/31/21 [Rx Last Taken Unknown] Allergy/AdvReac Type Severity Reaction Status Date / Time carbamazepine [From Tegretol] AdvReac Other Verified 03/19/22 12:39 gabapentin AdvReac Other Verified 03/19/22 12:39 indomethacin AdvReac Other Verified 03/19/22 12:39 paroxetine [From Paxil] AdvReac PT UNSURE Verified 03/19/22 12:39 OF REACTION Surgical History History of cholecystectomy History of hernia repair Hx of CABG (~10/24/21) Social History Smoking Status: Never smoker ROS ROS ED Constitutional Constitutional ED: Denies chills or fever(s) Eyes Eyes: Denies blurry vision or change in vision ENT ENT ED: Denies rhinorrhea or sore throat Cardiovascular Cardiovascular: Reports chest pain; Denies palpitations Respiratory/Chest Respiratory/Chest: Reports cough and dyspnea Gastrointestinal Gastrointestinal: Denies abdominal pain, nausea or vomiting Genitourinary Genitourinary ED: Denies dysuria or hematuria Musculoskeletal Musculoskeletal: Denies back pain or neck pain Integumentary Denies abscess or rash Neurologic Neurologic: Denies headache(s) or weakness Allergic/Immunologic Allergic/Immunologic ED: Denies mouth swelling or urticaria EXAM Physical Exam Const Vital Signs: 03/19/22 12:36 03/19/22 13:00 03/19/22 13:27 Temperature 98 F Temperature Source Temporal Pulse Rate 92 Respiratory Rate 16 Respiratory Effort Short of Breath Blood Pressure 183/102 H Blood Pressure Mean 129 Pulse Ox 99 Oxygen Delivery Method Room Air Room Air 03/19/22 14:07 03/19/22 15:07 03/19/22 16:21 Temperature Temperature Source Pulse Rate 80 74 76 Respiratory Rate 18 19 H 16 Respiratory Effort Blood Pressure 187/103 H 191/110 H Blood Pressure Mean 131 137 Pulse Ox 97 97 97 Oxygen Delivery Method Room Air Room Air Room Air Positive well nourished and well developed General Appearance ED: well developed and NAD HEENT normocephalic and atraumatic Eyes PERRL and EOMs intact bilaterally Neck supple and no JVD Chest Wall Chest Narrative: There is mild tenderness over the left anterior chest. There is no edema or ecchymosis. There is no bony crepitance or step-off. Resp normal respiratory effort and clear to auscultation bilaterally Effort and Inspection: Negative for respiratory distress Cardio regular rate and regular rhythm GI normal to inspection, nondistended, normoactive bowel sounds, soft to palpation, non-tender and non-distended Extremity normal to inspection General Extremety ED: Negative for edema or tenderness General Extremity: Negative for edema Neuro oriented x3, CN's II-XII intact bilaterally and no sensory deficits noted Sensorium / Orientation: awake and alert Motor Exam: strength 5/5 throughout Psych mental status grossly normal Speech: soft Mood & Affect: depressed Thought Content: No suicidality and No homicidality Heart Score History: Slightly/Non-Suspicious ECG: Normal Age: >/= 65 years Risk Factors: >/= 3 Risk Factors or History of CAD Troponin: </= Normal Limit Score: 4 MDM MDM MDM Narrative Medical decision making narrative: Patient was given aspirin here. Patient was given a dose of his oxycodone here. EKG was obtained. On my interpretation, it showed a normal sinus rhythm with a rate of 83. UT interval, QRS interval, and QTc intervals were all normal. There is borderline left axis deviation at -20. There are no acute ST or T wave changes. PA and lateral chest x-ray was obtained. There are 2 views. On my interpretation, lung chowdhury are clear. There is normal cardiac silhouette. Bony thorax is normal. There is no acute process noted. Radiologist also interpreted the x-ray and agrees. CBC was obtained and was reviewed. Hemoglobin was slightly low at 12.5 and hematocrit was 36.4. Prior outpatient lab results were reviewed and were similar. Basic metabolic profile was obtained and was reviewed. There is a mild hypokalemia of 3.3. Glucose was slightly elevated at 189. High-sensitivity troponin was obtained and was reviewed. This was normal at 17. Patient was given a dose of oral potassium here. D-dimer was obtained. This was reviewed and was elevated at 3.03. Because of this, CTA of the chest was obtained. On my independent rotation, there is no evidence of pulmonary embolism or aortic dissection. Radiologist also interpreted the CT scan. He agrees that there is no pulmonary embolism or aortic dissection. There is no acute process noted. Patient was advised of his findings. Patient was instructed to continue with Tylenol or ibuprofen as needed for pain. Patient was instructed to follow-up with his primary care physician in 5 to 7 days. Patient understood and was agreeable with the plan. All questions were answered. Lab Data Attestation: I reviewed the patient's lab results. Labs: Laboratory Results - last 24 hr 03/19/22 03/19/22 03/19/22 12:59 12:59 12:59 WBC 5.0 RBC 4.15 L Hgb 12.5 L Hct 36.4 L MCV 87.7 MCH 30.1 MCHC 34.3 RDW Std Deviation 41.8 RDW Coeff of Saskia 13.1 Plt Count 275 MPV 9.0 Immature Gran % (Auto) 0.800 Neut % (Auto) 70.4 H Lymph % (Auto) 16.6 L [place] % (Auto) 9.8 Eos % (Auto) 2.0 Baso % (Auto) 0.4 Absolute Neuts (auto) 3.5 Absolute Lymphs (auto) 0.83 Nucleated RBC % 0 D-Dimer Quant (PE/DVT) 3.03 H* Sodium 140 Potassium 3.3 L Chloride 110 H Carbon Dioxide 24.0 Anion Gap 6 BUN 17 Creatinine 1.07 Estim Creat Clear Calc 70.37 Est GFR (MDRD) Af Amer 88 Est GFR (MDRD) Non-Af 73 BUN/Creatinine Ratio 15.9 Glucose 189 H Calcium 9.0 Troponin I High Sens 17 Radiography Chest X-Ray - ED: 2 View, Read by ED Physician, Read by Radiologist and No Acute Disease Diagnostic Testing: Clinical Impression(s) from Imaging Studies Chest X-Ray 03/19/22 13:18 IMPRESSION: Status post CABG. No acute abnormality is seen. Electronically Signed: Brett Oconnor MD at 14:12 EST , Chest CTA 03/19/22 15:19 IMPRESSION: 1. No acute cardiopulmonary abnormality. 2. No evidence of acute pulmonary embolism. Electronically Signed: Pablo Abarca MD at 16:29 EST , EKG Initial EKG: Attestation: I personally reviewed and interpreted this EKG as follows: Interpretation: Sinus Rhythm (83) and No Acute Injury Pattern Prior EKG tracings: available for review Prior: Unchanged (12/31/2021) Discharge Plan Triage Chief Complaint: Chest Pain ED Provider: Ryan Boyer Dx/Rx/DC Orders Clinical Impression: Chest pain, Hypertension, Depression Instructions: ED Chest Pain, Uncertain Cause Prescriptions: No Action sertraline 100 mg tablet 150 mg PO DAILY Label Comments: take 1 and 1/2 tablets by mouth once daily clopidogrel 75 mg tablet 75 mg PO DAILY magnesium oxide 400 mg (241.3 mg magnesium) tablet 400 mg PO DAILY Label Comments: take 1 tablet by mouth once daily until finished metoprolol tartrate 50 mg tablet 50 mg PO BID Label Comments: take 1 tablet by mouth twice a day gabapentin 100 mg capsule 200 mg PO BID Label Comments: take 2 capsules by mouth twice a day for 14 days rosuvastatin 20 mg tablet 20 mg PO QHS oxycodone-acetaminophen [Percocet] 5-325 mg tablet 1 tab PO Q6H PRN (Reason: pain) 3 Days Qty: 12 0RF oxycodone-acetaminophen [Percocet] 5-325 mg tablet 1 tab PO Q6H PRN (Reason: pain) 3 Days Qty: 10 0RF Primary Care Provider: Madhu Salgado Referrals: Madhu Salgado MD [Primary Care Provider] - 5-7 Days Disposition Disposition: Home, Self Care Discharge Date/Time: 03/19/22 16:57
[2022-03-19] MEDS: oxyCODONE 5 MG Tablet PO (14:47)
[2022-03-19 15:07] VITALS: BP 187/103; PULSE 74; RESP 19; O2SAT 97
[2022-03-19 15:16] LABS: D-Dimer Quantitative (DVT/PE) 3.03 FEU/ug/m (0.27-0.49)
--- NOTE | 2022-03-19 15:19 | CT_ITS ---
EXAM: CT ANGIOGRAPHY CHEST WITHOUT AND WITH INTRAVENOUS CONTRAST CLINICAL INDICATION: elevated d-dimer TECHNIQUE: Helically acquired angiography images were obtained of the chest without and with intravenous contrast. This CT exam was performed using one or more of the following dose reduction techniques: automated exposure control, adjustment of the mA and/or kV according to patient size, and/or use of iterative reconstruction technique. This report was created using 7-bites report generation technology. MIP reconstructed images were created and reviewed. CONTRAST: IV 100mL [id number] COMPARISON: Chest radiograph 03/19/2022 FINDINGS: PULMONARY ARTERIES: Normal. Normal in caliber. No evidence of pulmonary embolism. AORTA: Normal. Normal in caliber. No evidence of dissection. GREAT VESSELS OF AORTIC ARCH: Normal. Normal in caliber. No evidence of dissection. LUNGS AND PLEURAL SPACES: Linear scarring/atelectasis within the right middle lobe and lingula. No mass. No pleural effusion or thickening. No pneumothorax. HEART: Surgical changes of coronary artery bypass graft (CABG). No pericardial effusion. No signs of right heart strain, ratio of right ventricle to left ventricle measures less than 1. Normal heart size. MEDIASTINUM: Normal. No mediastinal or hilar adenopathy. Esophagus is unremarkable. No hiatal hernia. THYROID: Normal. No thyroid lesions. BONES/JOINTS: Normal. No suspicious lytic or blastic abnormality. GALLBLADDER AND BILE DUCTS: Cholecystectomy clips are in place. Biliary tree is distended likely related to cholecystectomy. CT/CTA Chest W/WO Contrast IMPRESSION: 1. No acute cardiopulmonary abnormality. 2. No evidence of acute pulmonary embolism. Electronically Signed: Pablo Abarca MD at 16:29 EST ,
--- NOTE | 2022-03-19 15:45 | CHAPLAIN ---
Type of Pastoral Visit _x__ Initial Visit ___ Follow-up Visit ___ On-call Visit ___ General Patient Visit ___ Spiritual Assessment ___ Family Conference ___ Bereavement ___ Rapid Response ___ Code Blue ___ Other (describe below) Pastoral Care Referral From _x__ Patient ___ Family ___ Nurse ___ Physician ___ Basin Operator ___ Logistics Analytics Manager _x__ Other (describe below) Sacrament/Intervention _x__ Active listening ___ Anointing ___ Restoration ___ Bereavement ___ Communion _x__ Maggy exploration ___ _x__ Life review _x__ Prayer ___ Reconciliation ___ Sacrament of Sick _x__ Supportive presence ___ Wedding ___ Other (describe below) Pastoral Comments 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 who recommended offer of support to this patient; pt is welcoming and eager to talk; pt identifies himself as a Evangelical and explains his physical health and his marital concerns; pt had recent heart surgery and is physically weak; pt has family problems and he is finding new and deep emotions; pt is asked about his emotional state and if he would hurt himself; pt says absolutely he would not hurt himself; pt has limited family in the area or who are capable to come to him; pt does have buddhist friends; pt is encouraged to acknowledge his needs to friends and receive help; pt welcomes prayer and presence
[2022-03-19 16:21] VITALS: BP 191/110; PULSE 76; RESP 16; O2SAT 97
== END 2022-03-19 16:57 | disposition home or self-care (01) ==
PROVIDERS: Emergency Provider Emergency Medicine; PCP Family Medicine; Visit Provider Emergency Medicine
DX: R07.9 Chest pain, unspecified (principal); I10 Essential (primary) hypertension; F32.A Depression, unspecified; I25.10 Atherosclerotic heart disease of native coronary artery without angina pectoris; Z95.1 Presence of aortocoronary bypass graft
CPT/HCPCS: 71046; 71275; 80048; 84484; 85025; 85379; 93005; 99285; Q9967; A4216

== ENCOUNTER 2022-04-21 11:30 | Outpatient (RCR) | payer MEDICARE, OTHER, SELFPAY ==
[2022-01-22 14:32] VITALS: BMI 30.7
[2022-03-02 00:10] VITALS: BP 156/80; BP 200/98
== END 2022-04-29 23:59 ==
LOC: CR 11:30
PROVIDERS: PCP Family Medicine
DX: Z95.1 Presence of aortocoronary bypass graft (principal)
CPT/HCPCS: 93798

== ENCOUNTER 2022-05-07 14:51 | Outpatient (RCR) | payer MEDICARE, OTHER, SELFPAY ==
[2022-01-22 14:32] VITALS: BMI 30.7
[2022-04-30 00:07] VITALS: BP 156/80; BP 200/98
== END 2022-05-30 23:59 ==
LOC: CR 14:51
PROVIDERS: PCP Family Medicine
DX: Z95.1 Presence of aortocoronary bypass graft (principal)
CPT/HCPCS: 93798

== ENCOUNTER 2022-06-02 06:40 | Outpatient (RCR) | payer MEDICARE, OTHER, SELFPAY ==
[2022-01-22 14:32] VITALS: BMI 30.7
[2022-05-31 00:51] VITALS: BP 156/80; BP 200/98
== END 2022-06-29 23:59 ==
LOC: CR 06:40
PROVIDERS: PCP Family Medicine
DX: Z95.1 Presence of aortocoronary bypass graft (principal)
CPT/HCPCS: 93798